=== PATIENT | female | born 1950 | race Caucasian/White ===

== ENCOUNTER → 2021-04-29 | Outpatient (CLI) | payer MEDICARE, OTHER ==
--- NOTE | 2021-04-29 14:14 | Diagnostic Imaging Report ---
INDICATION: 71-year-old female asymptomatic postmenopausal female COMPARISON: None available. FINDINGS: AP Spine L1-L4: [BMD (g/cm2): 1.368] [T-Score: 1.4] [Z-Score: 1.9] [BMD Previous: na] [BMD % Change: na] LT Hip Neck: [BMD (g/cm2): 0.823] [T-Score: -1.5] [Z-Score: -0.7] LT Hip Total: [BMD (g/cm2):1.034] [T-Score:0.2] [Z-Score: 0.8] [BMD Previous: na] [BMD % Change: na] RT Hip Neck: [BMD (g/cm2):0.892] [T-Score:-1.1] [Z-Score:-0.2] RT Hip Total: [BMD (g/cm2):1.045] [T-score:0.3] [Z-Score:0.9] [BMD Previous:na] [BMD % Change:na] *Indicates significant change from prior examination based on 95% confidence level. World Health Organization criteria for BMD interpretation classify patients as Normal (T-score at or above -1.0), Osteopenic (T-score between -1.0 and -2.5) or Osteoporotic (T-score at or below -2.5). LIMITATIONS AND MODIFICATION: None. FRACTURE RISK (FRAX SCORE): The ten year probability of (%): Major Osteoporotic Fracture: [8.6] Hip Fracture: [1.1] IMPRESSION: 1. Osteopenia (Low bone mass). 2. Baseline examination. 3. See below National Osteoporosis Foundation guidelines on when to potentially initiate pharmacologic therapy. Based on the National Osteoporosis Foundation Guidelines, pharmacologic treatment should be initiated in any of the following, unless clinical conditions suggest otherwise: * Any patient with prior fragility fracture of the hip or vertebrae. A spine fracture indicates 5X risk for subsequent spine fracture and 2X risk for subsequent hip fracture. * Osteoporosis (T-score <-2.5). * Postmenopausal women and men age 50 and older with low bone mass/osteopenia (T-score between -1.0 and -2.5) by DXA and 10-year major osteoporotic fracture greater than 20% or a 10-year probability of hip fracture greater than 3%. These fracture risks are supplied above in the FRAX score, if applicable. * Clinician judgement and/or patient preferences may indicate treatment for people with 10-year fracture probabilities above or below these levels. Dictated by: Dictated on workstation # [id number]
--- NOTE | 2021-04-29 14:43 | Diagnostic Imaging Report ---
PROCEDURE: MRI lumbar spine. TECHNIQUE: Multiplanar, multisequence MRI of the lumbar spine was performed without contrast. INDICATION: Lower back pain. COMPARISON: None. FINDINGS: For the purposes of this exam, last well-formed disc space is denoted the L5-S1 level. Evaluation of the static alignment demonstrates mild levoscoliotic deformity as well as mild grade 1 anterolisthesis at L3-L4. There is also slight grade 1 retrolisthesis at L1-L2 and L2-L3. There is no evidence of jumped facets. Vertebral body heights are maintained. There is no acute fracture. Evaluation of the marrow signal demonstrates multilevel Modic endplate changes. Benign-appearing hemangioma is also noted at L4. Additionally, there is moderate multilevel intervertebral disc height loss with multilevel prominent anterior and posterior disc bulging. Visualized portions of the distal cord are unremarkable. Conus terminates at approximately the L1-L2 level. No abnormal intrathecal filling defects are seen. Pre- and para-vertebral soft tissue structures are unremarkable. Note is made of asymmetric right-sided hydronephrosis. Please note, right kidney is only partially included in the [id number]. Right ureter appears to be decompressed. Axial images demonstrate the following: T12-L1: There is slight broad-based posterior disc bulge. Additionally, there is mild bilateral ligamentum flavum laxity and facet arthropathy. As a result, there is minimal narrowing of the spinal canal. There is no significant neural foraminal stenosis. L1-L2: There is broad-based posterior disc bulge, eccentric to the left. There is also bilateral ligamentum flavum laxity and facet arthropathy. As a result, there is mild narrowing of the spinal canal and bilateral neural foramina. L2-L3: There is broad-based posterior disc bulge with bilateral ligamentum flavum laxity and facet arthropathy. As a result, there is [id number] narrowing of the spinal canal and bilateral neural foramina. L3-L4: There is broad-based posterior disc bulge and bilateral ligamentum flavum laxity and facet arthropathy. As a result, there is moderate stenosis of the spinal canal and mild narrowing of the bilateral neural foramina. L4-L5: There is broad-based posterior disc osteophyte complex formation and prominent bilateral ligamentum flavum laxity and facet arthropathy. As a result, there is moderate stenosis of the bilateral neural foramina. L5-S1: There is broad-based posterior disc bulge and prominent bilateral facet arthropathy. As a result, there is minimal narrowing of the spinal canal and right neural foramen. There is, however, [id number] stenosis of the left neural foramen as well. IMPRESSION: 1. Multilevel degenerative changes of the lumbar spine as described above. 2. No acute fracture or dislocation. Dictated by: Dictated on workstation # [id number]
== END ==
LOC: RAD 13:15
PROVIDERS: ATTEND Family Medicine
DX: M51.27 Other intervertebral disc displacement, lumbosacral region (principal); M48.07 Spinal stenosis, lumbosacral region; M47.816 Spondylosis without myelopathy or radiculopathy, lumbar region; M85.80 Other specified disorders of bone density and structure, unspecified site; Z78.0 Asymptomatic menopausal state
CPT/HCPCS: 72148; 77080

== ENCOUNTER → 2021-06-19 | Outpatient (CLI) | payer MEDICARE, OTHER ==
--- NOTE | 2021-06-19 13:45 | Diagnostic Imaging Report ---
EXAM: LUMBOSACRAL SPINE 4 VIEWS OR > INDICATION: Back pain while walking. COMPARISON: Lumbar spine MRI 04/29/2021. FINDINGS: Stable mild left apex lumbar curvature. Grade 1 retrolisthesis of L2 on L3 and anterolisthesis of L3 on L4 is also stable. No subluxation with flexion or extension. Vertebral body heights are preserved. No fractures are identified. Moderate to advanced degenerative endplate changes are greatest at L4-S1. Moderate lower lumbar facet arthropathy. Visualized pelvis is intact. IMPRESSION: Stable mild/moderate spondylotic changes and mild scoliosis in the lumbar spine. No acute radiographic findings. No subluxation with flexion or extension. Dictated by: Dictated on workstation # [id number]
== END ==
LOC: RAD 12:31
PROVIDERS: ATTEND Family Medicine
DX: M47.816 Spondylosis without myelopathy or radiculopathy, lumbar region (principal); M41.86 Other forms of scoliosis, lumbar region
CPT/HCPCS: 72110